=== PATIENT | male | born 1955 | race Caucasian/White ===

== ENCOUNTER → 2016-04-04 | Outpatient (CLI) | payer BC ==
[2016-04-04 14:21] LABS: BASO % 0.6 %; BASO ABS # 0.03 K/uL (0-0.2); COMPLETE YES; EOS % 2.1 %; HEMATOCRIT 45.1 % (42-52); IG% 0.4 %; LYMPH % 41.7 %; LYMPH ABS # 2.22 K/uL (1.2-3.4); MEAN CELL VOLUME 96.4 fL (80-100); MEAN CORPUSCULAR HEMOGLOBIN 33.3 pg (25-34); MEAN CORPUSCULAR HGB CONC 34.6 g/dl (32-36); MEAN PLATELET VOLUME 11.9 fL (7.4-10.4); MONO % 10.5 %; NEUT % 44.7 %; PLATELET COUNT 183 K/uL (130-400); RED BLOOD COUNT 4.68 M/uL (4.7-6.1); WHITE BLOOD COUNT 5.32 K/uL (4.8-10.8)
[2016-04-04 14:25] LABS: ALT/SGPT 45 U/L (12-78); BLOOD UREA NITROGEN 14 mg/dl (7-18); BUN/CREATININE RATIO 15.7 (10-20); CALCIUM 9.3 mg/dl (8.5-10.1); CARBON DIOXIDE 25 mmol/L (21-32); CHLORIDE 105 mmol/L (98-107); CHOLESTEROL 243 mg/dl (0-200); CREATININE 0.86 mg/dl (0.60-1.40); GLUCOSE 111 mg/dl (70-99); POTASSIUM 4.4 mmol/L (3.5-5.1); SODIUM 141 mmol/L (136-145)
[2016-04-04 14:28] LABS: ALB/GLOB RATIO 1.2 (0.9-2); ALKALINE PHOSPHATASE 67 U/L (45-117); AST/SGOT 26 U/L (15-37); CHOLESTEROL/HDL RATIO 3.2; HDL CHOLESTEROL 76 mg/dl; LDL CHOLESTEROL CALCULATED 145 mg/dl; TRIGLYCERIDES 109 mg/dl (0-150); VERY LOW DENSITY LIPOPROT CALC 22 mg/dl
== END | disposition home or self-care (01) ==
LOC: C.LABBC 09:52
PROVIDERS: ATTEND Family Medicine
DX: E78.5 Hyperlipidemia, unspecified (principal); C61 Malignant neoplasm of prostate; Z11.59 Encounter for screening for other viral diseases

== ENCOUNTER → 2017-03-20 | Outpatient (CLI) | payer BC, OTHER | END | disposition home or self-care (01) | LOC: C.LABPBG 09:57 | PROVIDERS: ATTEND Family Medicine | DX: C61 Malignant neoplasm of prostate (principal) ==

== ENCOUNTER → 2017-03-23 | Outpatient (CLI) | payer BC, OTHER ==
[2017-03-23 14:12] LABS: ALBUMIN 4.1 gm/dl (3.4-5.0); ALT/SGPT 39 U/L (12-78); AST/SGOT 22 U/L (15-37); BLOOD UREA NITROGEN 10 mg/dl (7-18); CALCIUM 9.5 mg/dl (8.5-10.1); CARBON DIOXIDE 26 mmol/L (21-32); CHOLESTEROL 235 mg/dl (0-200); GLUCOSE,FASTING 101 mg/dl (70-99); POTASSIUM 4.2 mmol/L (3.5-5.1); SODIUM 135 mmol/L (136-145)
[2017-03-23 14:13] LABS: ALKALINE PHOSPHATASE 65 U/L (45-117); LDL CHOLESTEROL CALCULATED 133 mg/dl
== END | disposition home or self-care (01) ==
LOC: C.LABPBG 08:42
PROVIDERS: ATTEND Physician Assistant
DX: Z00.00 Encounter for general adult medical examination without abnormal findings (principal); E78.5 Hyperlipidemia, unspecified

== ENCOUNTER 2020-09-28 09:05 | Inpatient (IN) ==
[2020-09-28 09:35] LABS: Basophils # (auto) 0.01 K/uL (0-0.2); Basophils % (auto) 0.2 %; Eosinophils # (auto) 0.07 K/uL (0-0.5); Eosinophils % (auto) 1.2 %; Hematocrit (blood only) 43.1 % (42-52); Immature Granulocytes # (auto) 0.02 K/uL (0.00-0.02); Immature Granulocytes % (auto) 0.3 %; Lymphocytes # (auto) 2.01 K/uL (1.2-3.4); Lymphocytes % (auto) 33.6 %; Mean Corpuscular Hemoglobin 33.6 pg (25-34); Mean Corpuscular Hgb Conc 34.8 g/dL (32-36); Mean Corpuscular Volume 96.6 fL (80-100); Monocytes # (auto) 0.63 K/uL (0.11-0.59); Monocytes % (auto) 10.5 %; Neutrophils # (auto) 3.25 K/uL (1.4-6.5); Neutrophils % (auto) 54.2 %; Platelet Count 194 K/uL (130-400); RDW Coefficient of Variation 13.4 % (11.5-14.5); RDW Standard Deviation 47.6 fL (36.4-46.3); Red Blood Count 4.46 M/uL (4.7-6.1); White Blood Count 5.99 K/uL (4.8-10.8)
[2020-09-28 09:45] LABS: Partial Thromboplastin Time 26.8 Seconds (21.0-31.0)
--- NOTE | 2020-09-28 09:49 | XRay Report ---
XR chest 1V portable HISTORY: 65 years-old Male Chest Pain acute atypical chest pain COMPARISON: Chest radiograph 12/19/2013 TECHNIQUE: Portable AP view of the chest FINDINGS: Cardiomediastinal and hilar silhouettes are within normal limits. No pneumothorax, pleural effusion, airspace consolidation or overt pulmonary edema. Degenerative changes of the shoulders and spine. Unc hanged mild interstitial coarsening of the lung bases. Chronic right-sided rib fractures. IMPRESSION: No acute process. ACT 112: Negative or not required by law. The above report was generated using voice recognition software. It may contain grammatical, syntax o r spelling errors. Electronically signed by: Ayaz Londono M.D. 09/28/2020 9:48 AM
[2020-09-28 09:58] LABS: BUN Creatinine Ratio 16.6 (10-20); Calcium 8.3 mg/dl (8.5-10.1); Creatinine Clr Calc Pharmacy 110.3 ml/min; Est GFR (African American) 114.5 ml/min; Est GFR (Non-African American) 98.8 ml/min; Potassium 4.1 mmol/L (3.5-5.1)
--- NOTE | 2020-09-28 10:01 | Emergency Department Note ---
History of Present Illness General Chief complaint: Chest Pain Stated complaint: CHEST PAIN Time Seen by Provider: 09/28/20 09:10 History of Present Illness Maximum Pain Intensity: 1 65-year-old male who presents to the ED with a chief complaint of chest discomfort. The patient states that for the past week or so he has been having a burning discomfort in his lungs with exertion. Specifically the patient states that when he goes up a set of stairs at work, he has been developing this chest discomfort. Home Medications Medication Instructions Recorded Confirmed Type sildenafil 50 mg tablet 50 mg PO DAILY PRN #12 tab 02/12/20 09/28/20 Rx cyclobenzaprine 5 mg tablet 5 mg PO TID PRN #30 tab 06/25/20 09/28/20 Rx meloxicam 15 mg tablet 15 mg PO DAILY PRN 09/28/20 09/28/20 History Allergies Allergy/AdvReac Type Severity Reaction Status Date / Time No Known Drug Allergies Allergy Verified 09/28/20 09:59 Past Med/Surg History Medical History (Updated 09/28/20 @ 10:26 by Vargas Mays DO) Alcohol abuse Chews tobacco regularly Erectile dysfunction Hyperlipidemia Lumbar degenerative disc disease No pertinent past medical history Prostate cancer Brachy therapy 06/20/2007 Surgical History History of cardiac catheterization 1994-negative History of repair of rotator cuff Left Family History Mother Breast cancer Brother Myocardial infarction Other No pertinent family history in first degree relatives Denies family history of Ovarian cancer Prostate cancer Colorectal cancer Social History Smoking Status: Never smoker Second Hand Exposure: No; Hx Alcohol Use: Yes Hx Substance Use: No Preferred Language: Mauritanian Communication Ability: Effective Visual Impairment: No Limitations Hearing Ability: Normal Printer'S Assistant Required: No Beliefs That Will Affect Care: None marital status: Current Living Situation: Spouse current occupational status: employed 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 Feels Safe at Home: Yes Childhood Exposure to Second-Hand Smoke: No caffeine: Yes during the past year weight has: remained stable Dental Care, Regularly: Yes Physical Activity Frequency: Daily Seatbelt Use: always Sunscreen Use: No Review of Systems A total of 10 systems reviewed and were otherwise negative Physical Exam Vital Signs Vital Signs - 24 hr 09/28/20 09:15 09/28/20 09:30 09/28/20 10:00 Temperature 36.7 C Temperature Source Oral Pulse Rate 67 58 L 61 Pulse Rate from SpO2 Sensor 66 59 L 63 Pulse Rhythm Regular Pulse Strength Normal Respiratory Rate 16 18 15 Respiratory Effort / Characteristics Non-Labored Spontaneous Respiratory Depth Normal Respiratory Pattern Regular Blood Pressure 150/89 H 128/77 134/73 Blood Pressure Mean 109 94 93 Blood Pressure Position Sitting Pulse Oximetry 98 97 97 Oxygen Delivery Method Room Air Sepsis Recent Fever Within 48 Hours No Sepsis New/Unexplained Change in Mental Status No Sepsis Action Taken by Nursing No Action Required CONSTITUTIONAL/VITAL SIGNS: Reviewed / noted above. GENERAL: Non-toxic in appearance. INTEGUMENTARY: Warm, dry, and [place]. HEAD: Normocephalic. EYES: without scleral icterus or trauma. ENT/OROPHARYNX: clear and moist. LYMPHADENOPATHY/NECK: Is supple without lymphadenopathy or meningismus. RESPIRATORY: Clear to auscultation bilaterally. No increased work of breathing. CARDIOVASCULAR: Regular rate and rhythm. GI/ABDOMEN: Soft and nontender. No organomegaly or pulsatile mass. EXTREMITIES: Warm and well perfused. BACK: No CVA tenderness. NEUROLOGICAL: Intact without focal deficits. PSYCHIATRIC: normal affect. MUSCULOSKELETAL: Normally developed with good muscle tone. TRIAGE NURSING DOCUMENTATION REVIEWED. Medical Decision Making Differential Diagnosis The differential that was considered includes acute myocardial infarction, acute coronary syndrome, myocarditis, pericarditis, pericardial effusions /tamponade, esophageal perforation, thoracic aortic dissection, pulmonary embolism, pneumonia, pneumothorax, pancreatitis, shingles, acute cholecystitis, perforated abdominal viscus. Medical Records Attestation: I reviewed the patient's medical records. Home Medications Current Medication List: was personally reviewed by me Laboratory Data Attestation: I reviewed the patient's lab results. Result diagrams: 09/28/20 09:21 09/28/20 09:21 Lab Results 09/28/20 09/28/20 09/28/20 Range/Units 09:21 09:21 09:21 WBC 5.99 (4.8-10.8) K/uL RBC 4.46 L (4.7-6.1) M/uL Hgb 15.0 (14.0-18.0) g/dL Hct 43.1 (42-52) % MCV 96.6 (80-100) fL MCH 33.6 (25-34) pg MCHC 34.8 (32-36) g/dL RDW Std Deviation 47.6 H (36.4-46.3) fL RDW Coeff of Beverley 13.4 (11.5-14.5) % Plt Count 194 (130-400) K/uL MPV 11.0 H (7.4-10.4) fL Immature Gran % (Auto) 0.3 % Neut % (Auto) 54.2 % Lymph % (Auto) 33.6 % [place] % (Auto) 10.5 % Eos % (Auto) 1.2 % Baso % (Auto) 0.2 % Neut # (Auto) 3.25 (1.4-6.5) K/uL Lymph # (Auto) 2.01 (1.2-3.4) K/uL [place] # (Auto) 0.63 H (0.11-0.59) K/uL Eos # (Auto) 0.07 (0-0.5) K/uL Baso # (Auto) 0.01 (0-0.2) K/uL Immature Gran # (Auto) 0.02 (0.00-0.02) K/uL APTT 26.8 (21.0-31.0) Seconds PTT Ratio 1.0 Sodium 135 L (136-145) mmol/L Potassium 4.1 (3.5-5.1) mmol/L Chloride 107 (98-107) mmol/L Carbon Dioxide 22 (21-32) mmol/L Anion Gap 6.0 (3-11) BUN 11 (7-18) mg/dl Creatinine 0.68 (0.6-1.4) mg/dl Est Cr Clr Drug Dosing 110.3 ml/min Est GFR ( Amer) 114.5 ml/min Est GFR (Non-Af Amer) 98.8 ml/min BUN/Creatinine Ratio 16.6 (10-20) Glucose 105 H (70-99) mg/dl Calcium 8.3 L (8.5-10.1) mg/dl Total Bilirubin 0.9 (0.2-1) mg/dl AST 22 (15-37) U/L ALT 43 (12-78) U/L Alkaline Phosphatase 62 (45-117) U/L Troponin I 0.061 H* (0-0.045) ng/ml Total Protein 7.3 (6.4-8.2) gm/dl Albumin 4.0 (3.4-5.0) gm/dl Globulin 3.3 (2.5-4.0) gm/dl Albumin/Globulin Ratio 1.2 (0.9-2) Lipase 135 (73-393) U/L Imaging Data Radiologist's Impression: Chest X-Ray 09/28/20 09:25 XR chest 1V portable HISTORY: 65 years-old Male Chest Pain acute atypical chest pain COMPARISON: Chest radiograph 12/19/2013 TECHNIQUE: Portable AP view of the chest FINDINGS: Cardiomediastinal and hilar silhouettes are within normal limits. No pneum othorax, pleural effusion, airspace consolidation or overt pulmonary edema. Degenerative changes of the shoulders and spine. Unchanged mild interstitial coarsening of the lung bases. Chronic right-sided rib fractures. IMPRESSION: No acute process. ACT 112: Negative or not required by law. The above report was generated using voice recognition software. It may contain grammatical, syntax or spelling errors. Electronically signed by: Ayaz Londono M.D. 09/28/2020 9:48 AM ECG Data Attestation: I personally reviewed and interpreted this ECG as follows: Additional Comments: Twelve-lead EKG: Per my interpretation there is a normal sinus rhythm at a rate of 60. No ST elevation. No PVCs. Normal QTC. MDM Narrative 65-year-old male presents with exertional chest discomfort as detailed above. The patient's troponin came up elevated 0.6. EKG shows a normal sinus rhythm without acute ischemic changes. CBC and chemistry panel were unremarkable and a chest x-ray did not show acute process. I did speak with Dr. Chau briefly about the patient prior to the troponin being resulted. If it was normal we are going to stress test the patient but now the patient will be admitted for further evaluation and care. The patient was ordered aspirin p.o. He is currently not having any chest discomfort. Impression & Plan Angina pectoris, unstable, Elevated troponin Discharge Plan Visit Data Chief Complaint: Chest Pain Stated Complaint: CHEST PAIN ED Provider: Vargas Mays ED Midlevel Provider: Shirley Martinez Discharge Problem: Angina pectoris, unstable, Elevated troponin Patient Disposition: Being Evaluated by Hospitalist Forms Stand Alone Forms: [facility] Prescriptions Prescriptions: No Action cyclobenzaprine 5 mg tablet 5 mg PO TID PRN (Reason: muscle spasm) Qty: 30 RF: 1 sildenafil 50 mg tablet 50 mg PO DAILY PRN (Reason: sexual activity) Qty: 12 RF: 4 meloxicam 15 mg tablet 15 mg PO DAILY PRN (Reason: Back Pain) RF: 0 Referrals Referrals: Dodie Jennings DO [Primary Care Provider] -
[2020-09-28 10:08] LABS: Albumin Globulin Ratio 1.2 (0.9-2); Bilirubin,Total 0.9 mg/dl (0.2-1); Globulin 3.3 gm/dl (2.5-4.0); Total Protein 7.3 gm/dl (6.4-8.2); Troponin I 0.061 ng/ml (0-0.045)
[2020-09-28] MEDS ORDERED: ASPIRIN CHEW 324 MG PO STA (10:26)
--- NOTE | 2020-09-28 10:51 | History & Physical Report ---
Date of Service September 28, 2020 Assessment & Plan (1) Angina pectoris, unstable: Plan: Progressingly worse chest pain on exertion in a 65 yo Patient with elevated trop will be admitted for unstable angina will obtain cardiac cath D/W Dr. GALLAGHER Will likely obtain today, will be placed on heprain drip IV Serial troponin check FLP in AM. Patient obtained ASA 325 mg PO X1. Will place ASA 81 mg PO daily Will place on Statin PO HS. D/W Cardio and ER provider (2) Elevated troponin: Plan: eleavted atv 0.6 will obtain echo and cardiac cath as above. (3) Prostate cancer: Plan: chronic, appears stable. (4) Erectile dysfunction: Plan: stable. (5) Chews tobacco regularly: Plan: will hold of nicotine patch for the moment. will monitor if patient requires later in hospital stay. CODE: Full code History of Present Illness Chief Complaint: Chest Pain Primary Care Provider: Dodie Jennings, DO 65 yo male with no significant cardiac history except for a cardiac cath done in 1994 which was negative. PMH: described below. Patient reports having pressure like midsternum non raditating chest pain which began last week and would occur intermittently while walking up a flight of stairs. This was accompanied by SOB. This pain would occur daily and would subside at rest after about 1 minute. Today patient reported his pain was more intense, and occured while walking in the parking lot. Patient felt that if he would continue with his work day, he may and decided to come to the hospital. Allergies Allergy/AdvReac Type Severity Reaction Status Date / Time No Known Drug Allergies Allergy Verified 09/28/20 09:59 Home Medications Medication Instructions Recorded Confirmed Type sildenafil 50 mg tablet 50 mg PO DAILY PRN #12 tab 02/12/20 09/28/20 Rx cyclobenzaprine 5 mg tablet 5 mg PO TID PRN #30 tab 06/25/20 09/28/20 Rx meloxicam 15 mg tablet 15 mg PO DAILY PRN 09/28/20 09/28/20 History Past Med/Surg History Medical History Alcohol abuse Chews tobacco regularly Erectile dysfunction Hyperlipidemia Lumbar degenerative disc disease No pertinent past medical history Prostate cancer Brachy therapy 06/20/2007 Surgical History History of cardiac catheterization 1995-negative History of repair of rotator cuff Left Family History Mother Breast cancer Brother Myocardial infarction Other No pertinent family history in first degree relatives Denies family history of Ovarian cancer Prostate cancer Colorectal cancer Social History Smoking Status: Never smoker Second Hand Exposure: No; Hx Alcohol Use: Yes Hx Substance Use: No Preferred Language: Hungarian Communication Ability: Effective Visual Impairment: No Limitations Hearing Ability: Normal Human Resources Communications Manager Required: No Beliefs That Will Affect Care: None marital status: Current Living Situation: Spouse current occupational status: employed 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 Feels Safe at Home: Yes Childhood Exposure to Second-Hand Smoke: No caffeine: Yes during the past year weight has: remained stable Dental Care, Regularly: Yes Physical Activity Frequency: Daily Seatbelt Use: always Sunscreen Use: No Review of Systems Constitutional: no fever and no sweats Eyes: no diplopia Ear, Nose, Mouth, Throat: no ear pain and no hyperacusis Respiratory: no change in sputum Cardiovascular: + chest pain, + chest pain with activity and + dyspnea Gastrointestinal: no bloating Musculoskeletal: no radicular pain Integumentary: no rash Neurologic: no falls Psychiatric: no hopelessness Endocrine: no cold intolerance Hematologic / Lymphatic: no coagulopathy Physical Exam Constitutional: WD/WN, vitals as above Eyes: PERRL, conjunctivae normal, anicteric sclerae ENMT: external ear and nose normal, oropharynx normal Neck: trachea midline, no thyromegaly Respiratory: normal respiratory effort, lungs clear to auscultation Cardiovascular: RRR, no murmur, no edema Gastrointestinal (Abdomen): normal bowel sounds, soft, nontender, no hepatosplenomegaly Musculoskeletal: no cyanosis or clubbing, extremities motor strength 5/5 Skin: no rashes, warm and dry Neurologic: patellar DTR's 2+ bilat, sensation intact Psychiatric: A+Ox3, euthymic affect Results & Data Results & Data ([facility]) Vital Signs (Past 12 Hours) Vital Signs Temp Pulse Resp BP Pulse Ox 09/28/20 10:30 63 19 142/88 H 98 09/28/20 10:00 61 15 134/73 97 09/28/20 09:30 58 L 18 128/77 97 09/28/20 09:15 36.7 C 67 16 150/89 H 98 PG Care Time/CCT Total # of Minutes Spent Total Time Spent with Patient: Total time spent is greater than 50% in coordination of care (as documented) at patient's floor/unit and/or counseling patient: Coding Level of Care Code 69005 Initial Inpt Care Lvl 3 Diagnoses Angina pectoris, unstable I20.0 Elevated troponin R77.8 Prostate cancer C61 Erectile dysfunction N52.9 Chews tobacco regularly Z72.0 Time Spent (min) 55
--- NOTE | 2020-09-28 10:54 | Emergency Department Note ---
General (ED) Blank Date of Service September 28, 2020 ED Visit Note I personally saw, interviewed, and examined the patient. Patient's case was discussed with Dr. Mays, ED attending, and I assisted with MDM. Please see attending documentation for full details. Resident Activity Tracking Resident Involvement: Resident Care Provided Care Provided: Adult ED
--- NOTE | 2020-09-28 12:41 | Cardiology Consultation ---
Date of Consultation September 28, 2020 Assessment & Plan (1) Angina pectoris, unstable: -symptoms are concerning for myocardial ischemia. -agree with intravenous heparin and aspirin. -would proceed with a cardiac catheterization today. (2) Hyperlipidemia: -agree with starting atorvastatin 40 mg q.h.s. History of Present Illness History of Present Illness Mr. Boles is a 65-year-old male being admitted today for an exertional chest pain syndrome. This consultation was obtained to assist in his cardiac management. The patient was in his usual state of health until approximately 1 week prior to presentation. Every morning at work, the patient experienced substernal chest discomfort when walking up a grade. There were no other associated symptoms such as shortness of breath, nausea, vomiting, diaphoresis, or radiation of the discomfort. His symptoms resolved with rest. This was very predictable according to his report. The patient has never known of a cardiac event. He did undergo cardiac catheterization by myself back in 1994 which failed to show significant coronary artery disease. Currently, patient is resting comfortably in bed without complaints. We have discussed the need for a cardiac catheterization rather than stress testing. Past medical and surgical history 1. Normal coronary arteries-1994 2. Hypercholesterolemia 3. Prostate carcinoma-June 2007 4. Prostate brachytherapy-June 2007 5. Left rotator cuff repair 6. 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 Review of systems A 10 point review systems was undertaken and negative except that described above. Allergies Allergy/AdvReac Type Severity Reaction Status Date / Time No Known Drug Allergies Allergy Verified 09/28/20 09:59 Home Medications Medication Instructions Recorded Confirmed Type sildenafil 50 mg tablet 50 mg PO DAILY PRN #12 tab 02/12/20 09/28/20 Rx cyclobenzaprine 5 mg tablet 5 mg PO TID PRN #30 tab 06/25/20 09/28/20 Rx meloxicam 15 mg tablet 15 mg PO DAILY PRN 09/28/20 09/28/20 History Patient History Medical History Alcohol abuse Chews tobacco regularly Erectile dysfunction Hyperlipidemia Lumbar degenerative disc disease No pertinent past medical history Prostate cancer Brachy therapy 06/20/2007 Surgical History History of cardiac catheterization 1995-negative History of repair of rotator cuff Left Family History Mother Breast cancer Brother Myocardial infarction Other No pertinent family history in first degree relatives Denies family history of Ovarian cancer Prostate cancer Colorectal cancer Social History Smoking Status: Never smoker Second Hand Exposure: No; Hx Alcohol Use: Yes Alcohol type: beer Hx Substance Use: No Preferred Language: Montserratian Communication Ability: Effective Visual Impairment: No Limitations Hearing Ability: Normal Grinder Machine Knife Setter Required: No Beliefs That Will Affect Care: None marital status: Current Living Situation: Spouse current occupational status: employed 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 HEENT exam is negative. Neck is supple with full carotid upstrokes. There are no carotid bruits. Jugular venous pressure is flat at 90. There is no thyromegaly. Cardiovascular exam reveals a regular rhythm with a normal S1 and S2. No S3, S4, or murmurs are noted. Lungs are clear wit hout rales, rhonchi, or wheezes. Abdomen is soft and nontender without bruits. Extremities reveal intact radial artery and posterior tibial pulses bilaterally. There is no peripheral edema. Results & Data ([facility]) Vital Signs (Past 12 Hours) Vital Signs Temp Pulse Resp BP Pulse Ox 09/28/20 12:00 67 13 133/76 99 09/28/20 11:30 61 18 136/83 09/28/20 11:00 57 L 19 130/86 09/28/20 10:30 63 19 142/88 H 98 09/28/20 10:00 61 15 134/73 97 09/28/20 09:30 58 L 18 128/77 97 09/28/20 09:15 36.7 C 67 16 150/89 H 98 Laboratory Results CBC notes hemoglobin 15.0, hematocrit 43.1, white count 5.99, platelet count 698080. Electrolytes note a sodium of 135, potassium 4.1, chloride 107, bicarb 22, BUN 11, creatinine 0.68, glucose of 105. Initial troponin is mildly elevated 0.061. Diagnostic Findings EKG notes normal sinus rhythm without abnormalities. Chest x-ray shows no acute disease. PG Care Time/CCT Total # of Minutes Spent Total Time Spent with Patient: Total time spent is greater than 50% in coordination of care (as documented) at patient's floor/unit and/or counseling patient: Coding Level of Care Code 73390 Office/OBS Consult Lvl 5 Diagnoses Angina pectoris, unstable I20.0 Hyperlipidemia E78.5
[2020-09-28] MEDS ORDERED: HEPARIN SODIUM/DEXTROSE 25,000 UNITS/500 ML BAG IV SCH (13:09)
[2020-09-28] MEDS ORDERED: Heparin IV Adult Wt-Based Standard *NO* Bolus Protocol IV SCH (13:09)
[2020-09-28] MEDS ORDERED: niCARdipine HCL INJ 2.5 MG/ML 10 ML AMP ONE (13:56)
[2020-09-28] MEDS ORDERED: MIDAZOLAM HCL 1 MG/ML 2ML VIAL ONE ×2 (13:56→14:48)
[2020-09-28] MEDS ORDERED: fentaNYL citrate 100 MCG/2 ML VIAL ONE ×2 (13:56→14:48)
[2020-09-28] MEDS ORDERED: NITROGLYCERIN/D5W 100MCG/ML 20ML SYR ONE (13:57)
[2020-09-28] MEDS ORDERED: NITROGLYCERIN/D5W 100 MCG/ML BTL ONE (14:41)
[2020-09-28] MEDS ORDERED: DOPamine 400MG / 250ML D5W (Cath Lab Use ONLY) ONE (14:50)
--- NOTE | 2020-09-28 15:23 | Pre Anesthesia Assessment ---
Date of Service September 28, 2020 Pre Sedation Assessment Vital Signs Temp Pulse Pulse Resp BP BP Pulse Ox 09/28/20 13:46 62 18 99 09/28/20 13:09 36.4 C L 20 129/75 98 09/28/20 12:30 56 L 16 120/64 99 09/28/20 12:00 67 13 133/76 99 09/28/20 11:30 61 18 136/83 09/28/20 11:00 57 L 19 130/86 09/28/20 10:30 63 19 142/88 H 98 09/28/20 10:00 61 15 134/73 97 09/28/20 09:30 58 L 18 128/77 97 09/28/20 09:15 36.7 C 67 16 150/89 H 98 Cardiovascular RRR, no murmur, no edema + regular rate Respiratory normal respiratory effort, lungs clear to auscultation Pre-Sedation Airway Assessment Smoking Status: Never smoker Hx Sleep Apnea: No Short, Thick Neck: Yes Thyromental Distance: < 3.5 Finger Breadths Oral Cavity: + WNL Mallampati Class: III ASA: ASA2 NPO Status Date of Last Intake of Fluids: 09/28/20 Time of Last Intake of Fluids: 07:00 Date of Last Intake of Solid Food: 09/27/20 Time of Last Intake of Solid Foods: 19:00 Notes The planned sedation has been discussed with the patient. Informed Consent was obtained. I have identified the patient, determined the appropriateness of sedation and have assessed the patient immediately prior to the procedure. All medicine(s) and interventions are by my order.
--- NOTE | 2020-09-28 15:23 | Post Anesthesia Assessment ---
Date of Service September 28, 2020 Post Sedation Assessment Vital Signs Temp Pulse Pulse Resp BP BP Pulse Ox 09/28/20 13:46 62 18 99 09/28/20 13:09 36.4 C L 20 129/75 98 09/28/20 12:30 56 L 16 120/64 99 09/28/20 12:00 67 13 133/76 99 09/28/20 11:30 61 18 136/83 09/28/20 11:00 57 L 19 130/86 09/28/20 10:30 63 19 142/88 H 98 09/28/20 10:00 61 15 134/73 97 09/28/20 09:30 58 L 18 128/77 97 09/28/20 09:15 36.7 C 67 16 150/89 H 98 Recovery Score Activity: Moves 4 extremities Respiration: Deep Breath/Cough Circulation: +/-20% PreAnes Value Consciousness: Fully Awake Oxygen Saturation: O2 needed for >90% Discharge Sedation Level of Care: Higher Level of Care Post Sedation Plan On clinical assessment, the patient appears to have tolerated the sedation without complications. Patient is recovering as anticipated. Patient will continue to be monitored by nursing and may be discharged when sedation discharge criteria are met per below protocol. Upon Completions of procedure up to 15 minutes continue every 5 minute vital signs and the P.A.R. score; then discharge to a Phase I or Fast Track to Phase II per the following guidelines: * Discharge Patient to appropriate Phase II area if PAR is 8 or greater or return to pre- procedure baseline. The post - procedure orders will be as directed. * If PAR score is less than 8 or not return to pre-procedure baseline then patient will follow Phase I monitoring till PAR is reached for Phase II. The Phase I may be done in procedure room or may call to secure a Phase I area. * If naloxone or flumazenil are used for reversal, hold in Phase I for continued monitoring from when last reversal dose was given for a minimum of 60 minutes or longer pending the nurse and/or physician discretion of patient condition before discharge to Phase II. Please call the Sedation Physician to re-evaluate and complete post-note for discharge to Phase II area. Do NOT discharge from procedure sedation or Phase 1 until post- sedation evaluation note is complete by procedure /sedation MD Sedation Discharge Instructions to be given to the patient at discharge to home.
--- NOTE | 2020-09-28 15:32 | Cardiac Catheterization ---
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 Cardiac Status Clinical evaluation leading to the procedure CAD Presenation: Non STEMI Anginal Classification: CCS IV Diagnostic Physicians Name: Tal Taveras MD Closure Device Recommendations: Medical Therapy and/or Counseling and PCI without planned CABG Cardiac Cath Procedure Full Procedure Date September 28, 2020 Pre-Procedure Diagnosis Pre-Procedure Diagnosis: Acute Coronary Syndrome AUC Score AUC Score: 9 Post-Procedure Diagnosis Post-Procedure Diagnosis: Severe CAD and Unsuccessful PCI Procedure(s) Performed Procedure(s) Performed: Coronary Angiography, PTCA, Temporary Pacemaker and IABP Farm Service Consultant Tal Taveras MD Estimated Blood Loss Estimated Blood Loss: 15 ml Summary of Findings 65-year-old gentleman presented to the hospital with symptoms of intermittent chest discomfort, 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 No previous known cardiac history, given his presentation and risk factors, it was decided to proceed with diagnostic coronary angiography. Cardiac catheterization revealed mild disease in his left circulation, ostial left circumflex and high diagonal artery had 30 to 40% disease, left artery descending artery had mid 50 to 60% eccentric stenosis with normal flow. Right coronary artery revealed presence of a severe and hazy appearing lesion in the mid segment of 95 to 99% severity, there was evidence of subtle [id number] collateral circulation. After reviewing his coronary anatomy, we decided to proceed with intervention to mid right coronary artery. A JR4 guiding catheter was used for the intervention followed by a run-through wire which crossed quite easily through the lesion. Subsequently we had difficulty in crossing a 2.5 mm noncompliant balloon to the lesion and a 1.25 mm balloon was used with the use of a telescope guide liner catheter. After some initial difficulty, the balloon across the lesion and 3 different inflations were performed. Patient at this point had normal flow and subsequently a 1.5 mm balloon was attempted to cross the lesion. This balloon however was not able to cross the lesion and at this point we decided to proceed with transfer of the patient to higher level of care for possible need for coronary arthrectomy. The patient however developed symptoms of right arm discomfort, subsequent diagnostic angiography showed occlusion of the right coronary artery at the lesion site with evidence of ST segment elevations in inferior leads. At this point, patient had placement of interbody balloon pump followed by temporary transvenous pacemaker. Coronary guidewire was reintroduced with further attempts at trying to cross the 1.25 mm balloon however this was again unsuccessful. At this point patient was given intracoronary nitroglycerin, coronary guidewire was removed and he did have worship of SINTIA-3 flow in the distal part of his vessel. His ST segments did resolve with above maneuvers, his chest pain also subsided as well. Plans are being made in progress for transfer of patient to [facility] for higher level of care. These findings were discussed with the patient's primary valve pipe irrigator, also discussed with patient's as well in detail. Hemodynamics Rest Ao:: 106/66 mmHg Final Ao: 105/62 mmHg LV: 102 over 1 mmHg, LVEDP 4 mmHg Recommendations Recommendations: Medical Therapy and/or Counseling and PCI without planned CABG Radiation Exposure (mGy) 3037 mGy Contrast (mls) 140 ml I attest to the content of the Intraoperative Record and any orders documented therein. Any exceptions are noted below. PG Care Time/CCT Total # of Minutes Spent Total Time Spent with Patient: Total time spent is greater than 50% in coordination of care (as documented) at patient's floor/unit and/or counseling patient:
--- NOTE | 2020-09-28 15:51 | Discharge Summary ---
Date of Service September 28, 2020 Admission HPI Per Admitting Provider 65 yo male with no significant cardiac history except for a cardiac cath done in 1994 which was negative. PMH: described below. Patient reports having pressure like midsternum non raditating chest pain which began last week and would occur intermittently while walking up a flight of stairs. This was accompanied by SOB. This pain would occur daily and would subside at rest after about 1 minute. Today patient reported his pain was more intense, and occured while walking in the parking lot. Patient felt that if he would continue with his work day, he may and decided to come to the hospital. Principal Diagnosis Unstable angina/ Severe CAD Discharge Exam Constitutional: WD/WN, vitals as above Eyes: PERRL, conjunctivae normal, anicteric sclerae ENMT: external ear and nose normal, oropharynx normal Neck: trachea midline, no thyromegaly Respiratory: normal respiratory effort, lungs clear to auscultation Cardiovascular: RRR, no murmur, no edema Gastrointestinal (Abdomen): normal bowel sounds, soft, nontender, no hepatosplenomegaly Musculoskeletal: no cyanosis or clubbing, extremities motor strength 5/5 Skin: no rashes, warm and dry Neurologic: patellar DTR's 2+ bilat, sensation intact Psychiatric: A+Ox3, euthymic affect Discharge Data Allergies Allergy/AdvReac Type Severity Reaction Status Date / Time No Known Drug Allergies Allergy Verified 09/28/20 09:59 Consultations 09/28/20 10:50 ED Decision to Admit Stat 09/28/20 10:51 Consult Cardiology Routine Procedures Performed Operation Date: 09/28/20 13:30 Actual Procedures p Cineradiography w/Routine Exam - Tal Taveras MD Ordered Studies 09/28/20 11:58 CL Cath Imgs for PACS use only Stat Hospital Course (1) Angina pectoris, unstable: Progressingly worse chest pain on exertion in a 65 yo Patient with elevated trop will be admitted for unstable angina will obtain cardiac cath D/W Dr. GALLAGHER Will likely obtain today, will be placed on heprain drip IV Serial troponin check FLP in AM. Patient obtained ASA 325 mg PO X1. Will place ASA 81 mg PO daily Will place on Statin PO HS. 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 No previous known cardiac history, given his presentation and risk factors, it was decided to proceed with diagnostic coronary angiography. Cardiac catheterization revealed mild disease in his left circulation, ostial left circumflex and high diagonal artery had 30 to 40% disease, left artery descending artery had mid 50 to 60% eccentric stenosis with normal flow. Right coronary artery revealed presence of a severe and hazy appearing lesion in the mid segment of 95 to 99% severity, there was evidence of subtle oldz-zn-vrapb collateral circulation. After reviewing his coronary anatomy, we decided to proceed with intervention to mid right coronary artery. A JR4 guiding catheter was used for the intervention followed by a run-through wire which crossed quite easily through the lesion. Subsequently we had difficulty in crossing a 2.5 mm noncompliant balloon to the lesion and a 1.25 mm balloon was used with the use of a telescope guide liner catheter. After some initial difficulty, the balloon across the lesion and 3 different inflations were performed. Patient at this point had normal flow and subsequently a 1.5 mm balloon was attempted to cross the lesion. This balloon however was not able to cross the lesion and at this point we decided to proceed with transfer of the patient to higher level of care for possible need for coronary arthrectomy. The patient however developed symptoms of right arm discomfort, subsequent diagnostic angiography showed occlusion of the right coronary artery at the lesion site with evidence of ST segment elevations in inferior leads. At this point, patient had placement of interbody balloon pump followed by temporary transvenous pacemaker. Coronary guidewire was reintroduced with further attempts at trying to cross the 1.25 mm balloon however this was again unsuccessful. At this point patient was given intracoronary nitroglycerin, coronary guidewire was removed and he did have gnosticist of SINTIA-3 flow in the distal part of his vessel. His ST segments did resolve with above maneuvers, his chest pain also subsided as well. Plans are being made in progress for transfer of patient to [facility] for higher level of care. These findings were discussed with the patient's primary loom winder tender, also discussed with patient's as well in detail. Patient will be helicoptered flown to [facility] as stated above. Patient will continue on Nitro drip and dopamine drip. (2) Elevated troponin: eleavted atv 0.6 will obtain echo and cardiac cath as above. (3) Prostate cancer: chronic, appears stable. (4) Erectile dysfunction: stable. (5) Chews tobacco regularly: will hold of nicotine patch for the moment. will monitor if patient requires later in hospital stay. CODE: Full code Total Time Total Time Spent Total Time Spent (In Minutes): 32 Discharge Plan Discharge Items Patient Disposition: Transfer Acute Care Hospital Reason For Visit: UNSTABLE ANGINA Discharge Diagnosis: Severe CAD and Unsuccessful PCI Activity: As commented below Activity Comment: BEDREST Non-emergency contact: Primary Care Provider and Interface Designer Call non-emergency contact if: you have any medication questions Follow-up/Referrals: Dodie Jennings DO [Primary Care Provider] - Diet: Nothing by Mouth Diet Comment: If needed for procedure/ if delayed, may eat heart healthy Addtl Attending Provider Instructions: 65-year-old gentleman presented to the hospital with symptoms of intermittent chest discomfort, predominantly bi developer symptoms at rest. No previous known cardiac history, given his presentation and risk factors, it was decided to proceed with diagnostic coronary angiography. Cardiac catheterization revealed mild disease in his left circulation, ostial left circumflex and high diagonal artery had 30 to 40% disease, left artery descending artery had mid 50 to 60% eccentric stenosis with normal flow. Right coronary artery revealed presence of a severe and hazy appearing lesion in the mid segment of 95 to 99% severity, there was evidence of subtle lhnb-cr-xswzy collateral circulation. After reviewing his coronary anatomy, we decided to proceed with intervention to mid right coronary artery. A JR4 guiding catheter was used for the intervention followed by a run-through wire which crossed quite easily through the lesion. Subsequently we had difficulty in crossing a 2.5 mm noncompliant balloon to the lesion and a 1.25 mm balloon was used with the use of a telescope guide liner catheter. After some initial difficulty, the balloon across the lesion and 3 different inflations were performed. Patient at this point had normal flow and subsequently a 1.5 mm balloon was attempted to cross the lesion. This balloon however was not able to cross the lesion and at this point we decided to proceed with transfer of the patient to higher level of care for possible need for coronary arthrectomy. The patient however developed symptoms of right arm discomfort, subsequent diagnostic angiography showed occlusion of the right coronary artery at the lesion site with evidence of ST segment elevations in inferior leads. At this point, patient had placement of interbody balloon pump followed by temporary transvenous pacemaker. Coronary guidewire was reintroduced with further attempts at trying to cross the 1.25 mm balloon however this was again unsuccessful. At this point patient was given intracoronary nitroglycerin, coronary guidewire was removed and he did have gnosticist of SINTIA-3 flow in the distal part of his vessel. His ST segments did resolve with above maneuvers, his chest pain also subsided as well. Plans are being made in progress for transfer of patient to [facility] for higher level of care. These findings were discussed with the patient's primary loom winder tender, also discussed with patient's as well in detail. Will be transferred at nitroglycerine drip and dopamine drip IV Pending Studies at Discharge: No Stand-Alone Forms: My [facility] Skilled Items Patient informed of condition?: Yes DNR: No Discharge Level of Care: Other Communicable Disease: Yes Discharge Prognosis: Stable Lines: Peripheral IV Urinary Catheter: Yes Medications and DC Order Prescriptions: New atorvastatin 40 mg Tablet 40 mg PO QPM Qty: 30 RF: 0 aspirin 81 mg Tablet,Delayed Release (Dr/Ec) 81 mg PO DAILY Qty: 30 RF: 0 Continued cyclobenzaprine 5 mg tablet 5 mg PO TID PRN (Reason: muscle spasm) Qty: 30 RF: 1 sildenafil 50 mg tablet 50 mg PO DAILY PRN (Reason: sexual activity) Qty: 12 RF: 4 Discontinued meloxicam 15 mg tablet 15 mg PO DAILY PRN (Reason: Back Pain) RF: 0 Discharge Orders: Discharge Order (Routine); Ordered 09/28/20 Ordered By: Kvng Mas Admission Data Admit Date/Time: 09/28/20 10:52 Attending Provider: Kvng Mas Admit Provider: Kvng Mas Primary Care Provider: Dodie Jennings Other Providers: Kvng Mas ; Shaw Chau Coding Level of Care Code D/C DAY MANAGEMENT >30 MINS Diagnoses Angina pectoris, unstable I20.0 Elevated troponin R77.8 Prostate cancer C61 Erectile dysfunction N52.9 Chews tobacco regularly Z72.0 Time Spent (min) 32
--- NOTE | 2020-09-28 16:59 | Electrocardiogram Report ---
Test Reason : Blood Pressure : / mmHG Vent. Rate : 061 BPM Atrial Rate : 061 BPM P-R Int : 154 ms QRS Dur : 090 ms QT Int : 382 ms P-R-T Axes : 041 008 034 degrees QTc Int : 384 ms Normal sinus rhythm Normal ECG When compared with ECG of 01-FEB-2015 10:42, No significant change was found Confirmed by Shaw Chau ([id number]) on 09/28/2020 4:59:14 PM Referred By: REFERRED SELF Confirmed By:Shaw Chau
[2020-09-28] MEDS ORDERED: ATORVASTATIN 40 MG TAB PO SCH (21:00)
[2020-09-29] MEDS ORDERED: ASPIRIN 81 MG ECTAB PO SCH (09:00)
--- NOTE | 2020-09-29 11:35 | XCELERA ---
[id number]
== END 2020-09-28 18:47 | disposition short-term general hospital (02) | DRG 229 ==
LOC: ED 09:05 → 2S 10:52
DX: Z82.49 Family history of ischemic heart disease and other diseases of the circulatory system; C61 Malignant neoplasm of prostate; N52.9 Male erectile dysfunction, unspecified; E78.5 Hyperlipidemia, unspecified; F17.220 Nicotine dependence, chewing tobacco, uncomplicated; F10.10 Alcohol abuse, uncomplicated; M51.36 Other intervertebral disc degeneration, lumbar region; I25.110 Atherosclerotic heart disease of native coronary artery with unstable angina pectoris